=== PATIENT | female | born 1970 | race Caucasian/White ===

== ENCOUNTER → 2024-07-26 14:05 | Outpatient (REF) | payer OTHER, SELFPAY | LOC: HWRAD 14:05 | PROVIDERS: ATTENDING PHYSICIAN Nurse Practitioner Adult Health | DX: G95.9 Disease of spinal cord, unspecified (principal); R20.2 Paresthesia of skin | CPT/HCPCS: 72050 ==

== ENCOUNTER → 2024-08-31 15:00 | Outpatient (REF) | payer OTHER, SELFPAY | LOC: PAVMRI 15:00 | PROVIDERS: ATTENDING PHYSICIAN Nurse Practitioner Adult Health | DX: G95.9 Disease of spinal cord, unspecified (principal); R20.2 Paresthesia of skin | CPT/HCPCS: 72141 ==

== ENCOUNTER → 2024-09-13 13:45 | Outpatient (REF) | payer OTHER, SELFPAY | LOC: EMG 13:45 | PROVIDERS: ATTENDING PHYSICIAN Orthopaedic Surgery; FAMILY PHYSICIAN Nurse Practitioner Adult Health | DX: R20.2 Paresthesia of skin (principal) | CPT/HCPCS: 95886; 95909 ==

== ENCOUNTER 2025-02-20 08:15 | Outpatient (RCR) | payer OTHER, SELFPAY | END 2025-02-20 23:59 | disposition home or self-care (01) | LOC: RPT 08:15 | PROVIDERS: ATTENDING PHYSICIAN Neurological Surgery; FAMILY PHYSICIAN Nurse Practitioner Adult Health | DX: G95.9 Disease of spinal cord, unspecified (principal); Z73.6 Limitation of activities due to disability; R26.89 Other abnormalities of gait and mobility; M43.22 Fusion of spine, cervical region | CPT/HCPCS: 97110; 97162 ==